=== PATIENT | female | born 1945 | race Caucasian/White ===

== ENCOUNTER → 2017-01-29 | Outpatient (CLI) | payer BC ==
--- NOTE | ~2017-01-29 | MY11 ---
[facility] A Service of [facility] RADIOLOGY TEXT RESULTS PATIENT: HIMA WILKINS LOCATION: [facility] : 49 UNIT #: [id number] AGE: [address]: Elizabeth Rodriguez MD SEX: F ORDER DR: [id number] [facility] [address] [place], [place] [address] [id number] O MR#: [id number] Acc #: [id number] NAME: HIMA WILKINS : 1945 SEX: F STUDY DATE/TIME: 01/29/2017 14:11 UNIT: [facility] ROOM: STUDY DESCRIPTION: MY Mammogram Screening [facility] [place] Attending Physician: Elizabeth Rodriguez M.D. Referring Physician: Elizabeth Rodriguez M.D. Ordering Physician: Elizabeth Rodriguez M.D. Primary Care Physician: Elizabeth Rodriguez M.D. MEDICAL IMAGING REPORT This report is preliminary unless electronic signature is present EXAM Screening mammogram 01/29/2017 INDICATIONS 71-year-old with no personal or family history of breast cancer. No current complaints. Routine digital screening views of both breasts were obtained. Study reviewed with an FDA-approved CAD device. COMPARISON STUDIES Comparison made 09/22/2014, 12/18/2012 FINDINGS Breast parenchyma shows scattered fibroglandular densities. No new masses or suspicious microcalcifications are seen. IMPRESSION Negative mammogram. Routine screen in 1 year recommended. BIRADS 1 Patients over the age of 40 are entered into a reminder system with target due date for the next mammogram. A result letter will also be sent to the patient. BIRADS: 1 - Negative Dictated by... Jozef Lopez Jr., M.D. THIS IS AN ELECTRONICALLY VERIFIED REPORT Jozef Lopez Jr., M.D. at 01/30/2017 9:48 AM [facility] A Service of [facility] RADIOLOGY TEXT RESULTS PATIENT: HIMA WILKINS LOCATION: [facility] : 49 UNIT #: [id number] AGE: [address]: Elizabeth Rodriguez MD SEX: F ORDER DR: SKYE/ritchie TD: 01/29/2017 18:15 JOB #: [id number] MEDICAL IMAGING REPORT Page 1 of 1 COPY
== END | disposition home or self-care (01) ==
LOC: CWCC 13:44
DX: Z12.31 Encounter for screening mammogram for malignant neoplasm of breast (principal)
CPT/HCPCS: G0202